=== PATIENT | male | born 1990 | race Caucasian/White ===

== ENCOUNTER 2024-11-21 21:04 | Emergency (ER) | payer OTHER ==
[~2024-11-21] VITALS: Ht 180.3 cm; Wt 90.7 kg
[2024-11-21 22:25] VITALS: BP 139/81; TEMP 98.4; O2SAT 98
== END 2024-11-22 03:46 | disposition left against medical advice (07) ==
LOC: ER 21:17
DX: Z20.2 Contact with and (suspected) exposure to infections with a predominantly sexual mode of transmission (principal); Z53.21 Procedure and treatment not carried out due to patient leaving prior to being seen by health care provider